=== PATIENT | female | born 1965 | race Caucasian/White ===

== ENCOUNTER 2019-05-08 04:00 | Inpatient (IN) | payer OTHER ==
[~2019-05-08] VITALS: Ht 152.4 cm; Wt 56.7 kg
[2019-05-08 04:08] VITALS: Ht 152.4 cm; Wt 56.7 kg
[2019-05-08 05:46] LABS: CARBON DIOXIDE 29.2 mmol/L (21-32); CHLORIDE SERUM 104 mmol/L (98-107); CREATININE SERUM 0.8 mg/dL (0.6-1.0); GFR1 > 60 mL/min; GLUCOSE SERUM 134 mg/dL (74-106); POTASSIUM SERUM 3.9 mmol/L (3.5-5.1); SODIUM SERUM 143 mmol/L (136-145)
[2019-05-08 05:50] LABS: ALBUMIN 3.9 g/dL (3.4-5.0); ALKALINE PHOSPHATASE 124 U/L (46-116); ALT/SGPT 37 U/L (14-59); AMYLASE 125 U/L (25-115); AST/SGOT 20 U/L (15-37); BILIRUBIN TOTAL 0.4 mg/dL (0.20-1.00); LIPASE 74 IU/L (73-393); TOTAL PROTEIN, SERUM 8.1 g/dL (6.4-8.2)
[2019-05-08 05:56] LABS: BASOPHIL % 0.8 % (0-2); PLATELET COUNT 185 x10^3mcL (130-400); RED CELL DISTRIBUTION WIDTH 13.4 % (11.5-14.5)
[2019-05-08 15:31] VITALS: BP 97/55
== END 2019-05-08 13:30 | disposition home or self-care (01) | DRG 340 ==
LOC: ED 04:00 → MU 11:09
PROVIDERS: Surgery; ADMIT Internal Medicine
PROC: 0DTJ4ZZ Resection of Appendix, Percutaneous Endoscopic Approach (ICD-10-PCS; principal; 2019-05-08 11:30)
DX: K35.32 Acute appendicitis with perforation, localized peritonitis, and gangrene, without abscess (principal); Z98.51 Tubal ligation status; Z88.0 Allergy status to penicillin; Z87.442 Personal history of urinary calculi
CPT/HCPCS: G0378; J1956; J2175; J2250; J2405; J2765; J3010; J3490; J7030